=== PATIENT | female | born 1940 | race Caucasian/White ===

== ENCOUNTER 2017-11-29 22:34 | Emergency (ER) | payer MEDICARE, BC ==
[~2017-11-29] VITALS: Ht 160 cm; Wt 102.1 kg
[2017-11-29 22:54] VITALS: BP 152/88
[2017-11-29] MEDS ORDERED: DIPHTH/TETANUS/ACEL. PERTUSSIS 0.5 ML SYR IM ONE (23:00)
== END 2017-11-29 23:24 | disposition home or self-care (01) ==
LOC: FSED 22:34
DX: S60.571A Other superficial bite of hand of right hand, initial encounter (principal); W55.01XA Bitten by cat, initial encounter; Y92.008 Other place in unspecified non-institutional (private) residence as the place of occurrence of the external cause; I10 Essential (primary) hypertension
CPT/HCPCS: 99282